=== PATIENT | male | born 1965 | race Caucasian/White ===

== ENCOUNTER → 2017-09-01 | Outpatient (CLI) | payer BC ==
[~2017-09-01] MED LIST: BACDS PO; CETI-459 PO; CLI150 PO; HYDR1TAB PO
== END ==
LOC: RESP 20:24
PROVIDERS: ATTEND Family Medicine
DX: G47.33 Obstructive sleep apnea (adult) (pediatric) (principal); E66.9 Obesity, unspecified; G47.10 Hypersomnia, unspecified

== ENCOUNTER → 2018-11-04 | Outpatient (CLI) | payer BC ==
--- NOTE | 2018-11-04 10:42 | RADIOLOGY IMAGING REPORT ---
FACILITY: [facility] PATIENT NAME: Nicanor Marshall : 1965 MR: [id number] V: [id number] EXAM DATE: ORDERING PHYSICIAN: NOE ROMO TECHNOLOGIST: [place] [facility] [place] Nicanor [place] : 1965 Visit/Account:[id number] Date of Sevice: 11/04/2018 EXAMINATION: Abdominal ultrasound complete HISTORY: Fatty liver COMPARISON: April 19, 2016 FINDINGS: Gallbladder: The gallbladder appears contracted. There is diffuse irregular thickening of the gallbl adder wall without acoustic shadowing Liver: The liver is enlarged measuring 21 cm in length. There is increased echogenicity throughout t he liver which can be seen with fatty infiltration or other infiltrative process Common duct: Normal measuring 3.2 mm. Pancreas: Partially obscured by bowel gas Spleen: The spleen is enlarged measuring 19.6 cm in length and is increased in size when compared to the prior study. Numerous tortuous vessels are seen adjacent to the splenic hilum. Varices are not excluded... Kidneys: Normal in size and echogenicity, the right measures 11.7 cm in length, and the left 11.9 cm . No hydronephrosis. Upper abdominal aorta and IVC: Negative. Ascites: None. IMPRESSION: There is hepatosplenomegaly with the spleen increasing in size compared to the prior study There is increased echogenicity throughout liver which can be seen with fatty infiltration or other i nfiltrative process There are numerous tortuous vessels identified in the splenic hilum. Varices are not excluded Gallbladder appears contracted with marked irregular thickening of the gallbladder wall. MRCP is rec ommended to exclude possibility of a gallbladder malignancy. Report Dictated By: Anamaria Herndon MD at 11/04/2018 10:19 AM Report E-Signed By: Anamaria Herndon MD at 11/04/2018 10:37 AM WSN:[email or web address]
== END ==
LOC: US 00:16
PROVIDERS: ATTEND Family Medicine
DX: K76.0 Fatty (change of) liver, not elsewhere classified (principal); R16.2 Hepatomegaly with splenomegaly, not elsewhere classified; R19.8 Other specified symptoms and signs involving the digestive system and abdomen
CPT/HCPCS: 76700

== ENCOUNTER → 2018-11-14 | Outpatient (CLI) | payer BC ==
[~2018-11-14] MED LIST changes: +GADOBENATE 529MG/1ML 15ML VIAL IVP ONE; +NS(*) 0.9% 50 ML BAG 50 ML ONE
--- NOTE | 2018-11-14 15:59 | RADIOLOGY IMAGING REPORT ---
[place] [facility] [place] Nicanor Marshall : 1965 MR: [id number] V: [id number] EXAM DATE: ORDERING PHYSICIAN: NOE ROMO TECHNOLOGIST: Location: [facility] [place] Patient: Nicanor Marshall : 1965 Visit/Account:[id number] Date of Sevice: 11/14/2018 MR ABDOMEN MRCP W & W/O CONTRAST HISTORY: Fatty changes of the liver, irregular thickening of gallbladder wall on recent abdomen ultr asound TECHNIQUE: Multiplanar multisequence magnetic resonance imaging of the abdomen with and without intr avenous contrast including magnetic resonance cholangiopancreatography (MRCP). CONTRAST: 15 mL of MultiHance COMPARISON: Abdomen ultrasound November 04, 2018 FINDINGS: Visualized lung bases: Grossly unremarkable. Liver: The liver is enlarged measuring 23.4 cm in length. Period there is signal dropout on the oppo sed phase images consistent with diffuse hepatic steatosis. Gallbladder: The gallbladder is much less contracted when compared to the prior ultrasound. The gall bladder wall does not appear thickened at this time. There are multiple small rounded masslike struc tures seen adherent to the gallbladder wall largest measuring 4 mm in diameter. These are hypointens e on the T2-weighted images and demonstrate faint contrast enhancement. These likely represent gallb ladder polyps. Bile ducts: Nondistended and unremarkable. Spleen: Spleen is enlarged measuring 18.2 cm in length Adrenal glands: Negative. Pancreas: Negative. Kidneys: Negative. Vessels/spaces/nodes: No bulky adenopathy or ascites. Visualized GI: Grossly unremarkable. Bones/soft tissues: Unremarkable. IMPRESSION: Hepatosplenomegaly and diffuse hepatic steatosis The gallbladder is much less contracted when compared to the prior ultrasound. The gallbladder wall does not appear thickened at this time. There are multiple small rounded masslike structures adheren t to the gallbladder wall measuring up to 4 mm in diameter. These are hypointense on the T2-weighted images and demonstrate faint contrast enhancement. These likely represent gallbladder polyps. A si x-month follow-up gallbladder ultrasound is recommended unless clinical findings were immediate atten tion. Report Dictated By: Anamaria Herndon MD at 11/14/2018 3:17 PM Report E-Signed By: Anamaria Herndon MD at 11/14/2018 3:56 PM WSN:[email or web address]
== END ==
LOC: MRI 00:14
PROVIDERS: ATTEND Family Medicine
DX: R16.2 Hepatomegaly with splenomegaly, not elsewhere classified (principal)
CPT/HCPCS: 74183; A9577; J7050

== ENCOUNTER 2019-02-05 00:38 | Day surgery (SDC) | payer BC ==
[2019-02-05] VITALS (9 sets, daily range): BP systolic 113–141; BP diastolic 71–92
[~2019-02-05] VITALS: Ht 188 cm; Wt 112.9 kg
[~2019-02-05 00:38] MED LIST changes: +AMLO-127 PO; +FLUT16SP19 NS; -GADOBENATE 529MG/1ML 15ML VIAL IVP ONE; +LISI-355 PO; -NS(*) 0.9% 50 ML BAG 50 ML ONE; +PIOG15TA14 PO; +[UNRECOGNIZED DRUG - CODE] OP
[2019-02-05] MEDS ORDERED: NORMOSOL R SOLN(*) 1000 ML BAG 1,000 ML IV PRN (08:00)
[2019-02-05] MEDS ORDERED: LIDOCAINE/SOD BICARB 8.4% SYR ID ONE (08:00)
[2019-02-05 08:16] LABS: INR 1.17
[2019-02-05] MEDS ORDERED: KETAMINE HCL-NS 50 MG/5 ML SYR ONE (08:26)
[2019-02-05] MEDS ORDERED: PROPOFOL EMUL(*) 10MG/ML 20 ML 20 ML ONE (08:26)
[2019-02-05] MEDS ORDERED: MIDAZOLAM 2 MG/2 ML VIAL ONE (08:26)
[2019-02-05] MEDS ORDERED: fentaNYL CITR 100 MCG/2 ML AMP ONE (08:26)
[2019-02-05] MEDS ORDERED: GLYCOPYRROLATE 0.2MG/ML 1 ML INJ ONE (08:27)
--- NOTE | 2019-02-05 10:34 | NUR ---
0945 PT ARRIVED TO PR VIA CART IN SUPINE POSITION, SBAR FROM DR. MATTHEWS AND CLAUDETTE FROM RADIOLOGY, VSS, PT DECLINES FOOD AND DRINK AT THIS TIME, DENIES PAIN OR NAUSEA, DRESSING TO UPPER R QUADRANT C/D/I, REQUESTED PREVIOUS CBC FROM DR. ROMO'S OFFICE AND LAB WILL RUN ONE FOR TODAY OFF OF THIS MORNINGS SAMPLE TO REFERENCE BASELINE 1000 VSS, NOT INTERESTED IN CAFETERIA MENU, FAMILY WILL BRING OUTSIDE FOOD. 1015 SPO2 STABLE, DOWN TO 2L NC, DENIES PAIN
[2019-02-05 11:25] LABS: PLATELET COUNT, AUTOMATED 75 K/uL (150-450)
--- NOTE | 2019-02-05 11:27 | NUR ---
1045 FIRST H/H OBTAINED, DRESSING C/D/I, DENIES PAIN 1115 DOWN TO 1L NC, SATTING WELL, VSS, DENIES PAIN, NAUSEA AFTER EATING, FAMILY REMAINS AT BEDSIDE 1125 DR. ANDERSON AT BEDSIDE TO DISCUSS PROCEDURE AND POSSIBILITY OF LEAVING AFTER 3 HRS STABLE OBSERVATION
--- NOTE | 2019-02-05 11:52 | NUR ---
1145 LAB AT BEDSIDE TO COLLECT SECOND HGB POST LIVER BX
--- NOTE | 2019-02-05 13:05 | NUR ---
1300 PT ON RA, SATTING WELL, SBAR TO Vitaliy JORDAN RN, DR. ANDERSON AT BEDSIDE TO RELEASE PT AT 3 HRS STABLE, DENIES PAIN OR NAUSEA, DRESSING C/D/I, ORTHOSTATICS DONE BY Vitaliy JORDAN RN. AT BEDSIDE
--- NOTE | 2019-02-05 14:47 | RADIOLOGY IMAGING REPORT ---
FACILITY: [facility] [place] PATIENT NAME: Nicanor Marshall : 1965 MR: [id number] V: [id number] EXAM DATE: ORDERING PHYSICIAN: NOE ROMO TECHNOLOGIST: Location: [facility] Patient: Nicanor Marshall : 1965 Visit/Account:[id number] Date of Sevice: 02/05/2019 LIVER BIOPSY Indication: Abnormal liver tests Comparison: None. Anesthesia: Moderate sedation was provided by Dr. Cameron. Also present an the anesthesiologist named Delio served as an independent trained observer to assist and monitoring of the patient's level of co nsciousness and physiological status including the monitoring of vital signs, oxygen saturation and E KG. The patient received 2 milligrams of Versed, and fentanyl 50 micrograms IV. Total intraservice time was 15 minutes. Findings: Prior to the exam, risks and benefits of an ultrasound-guided random liver biopsy were disc ussed with the patient and informed consent was obtained. The patient was placed supine on the gurney and the right abdomen was prepped and draped in normal sterile fashion. 1% buffered lidocaine was lo jorge injected for analgesia. After a small skin ashley, a 19/20 gauge coaxial system was advanced into the right lobe of the liver. 2 samples obtained. The needle was then removed and a Band-Aid placed. There were were no immediate post procedure complications. A [employer] collagen plug was then placed along the biopsy tract. Impression: Ultrasound guided biopsy right lobe of the liver. Report Dictated By: Jc Cameron at 02/05/2019 2:37 PM Report E-Signed By: Jc Cameron at 02/05/2019 2:38 PM WSN:[email or web address]
== END 2019-02-05 13:18 | disposition home or self-care (01) ==
LOC: OR 00:38
PROVIDERS: ATTEND Family Medicine
DX: K76.6 Portal hypertension (principal)
CPT/HCPCS: 36415; 36416; 47000; 76942; 82948; 85018; 85025; 85049; 85610; 85730; J2250; J2704; J3010; J3490